=== PATIENT | male | born 1985 | race African-American/Black ===

== ENCOUNTER 2018-12-16 08:43 | Emergency (ER) | payer MEDICAID ==
[~2018-12-16] VITALS: Ht 182.9 cm; Wt 125.2 kg
[~2018-12-16 08:43] MED LIST: IBUP-974 PO
[2018-12-16 08:49] VITALS: BP 159/100
--- NOTE | 2018-12-16 08:53 | NUR ---
PT AMBULATED TO ER BED 03
--- NOTE | 2018-12-16 08:54 | NUR ---
BIB SELF. AAO X4 C/O UPPER LEFT MOLAR PAIN. NEEDS TO HAVE ORAL SURGERY BUT CANNOT DUE TO HIGH BLOOD PRESSURE CONCERNS. SAW DENTIST 1WEEK AGO. PATIENT STATES PAIN IS UNBEARABLE. SHARP PAIN 10/10, CONSTANT. UNABLE TO CHEW ON THE L SIDE. DENIES DIFFICULTY SWALLOWING. HOB UP. BED SIDE RAILS UP X1. ON LOW BED POSITION, LOCKED. ER MADE AWARE OF PT STATUS.
--- NOTE | 2018-12-16 10:13 | NUR ---
DR FERNANDEZ AT BEDSIDE FOR PT EVALUATION
[2018-12-16] MEDS ORDERED: cloNIDine 0.1 MG TAB PO ONE (10:15)
[2018-12-16 11:15] VITALS: BP 146/92
--- NOTE | 2018-12-16 11:15 | NUR ---
Patient discharged with v/s stable. Written and verbal after care instructions given and explained. Patient alert, oriented and verbalized understanding of instructions. Ambulatory with steady gait. All questions addressed prior to discharge. ID band removed. Patient advised to follow up with PMD. Rx of Clindamycin, Clonidine Hcl, Fioricet given. Patient educated on indication of medication including possible reaction and side effects. Opportunity to ask questions provided and answered.
== END 2018-12-16 11:15 | disposition home or self-care (01) ==
LOC: MED 08:43
DX: K04.7 Periapical abscess without sinus (principal); I10 Essential (primary) hypertension; Z79.899 Other long term (current) drug therapy; Z88.0 Allergy status to penicillin; Z88.8 Allergy status to other drugs, medicaments and biological substances
CPT/HCPCS: 99283